=== PATIENT | male | born 1960 | race Caucasian/White ===

== ENCOUNTER 2019-06-27 16:01 | Outpatient (CLI) | payer OTHER, SELFPAY ==
[2019-06-27 16:12] LABS: Basophils Absolute Auto 0.1 K/mm3 (0.0-0.1); Basophils Percent Auto 0.8 % (0.2-1.2); Eosinophils Absolute Auto 0.3 K/mm3 (0-0.3); Eosinophils Percent Auto 3.1 % (0-4.4); Hematocrit 45.4 % (42.0-52.0); Hemoglobin 15.8 g/dL (14.0-18.0); Immature Granulocyte Absolute 0.02 K/mm3 (0.00-0.031); Immature Granulocyte Percent A 0.2 % (0-0.5); Lymphocytes Absolute Auto 3.85 K/mm3 (0.9-3.2); Lymphocytes Percent Auto 35.7 % (18.3-44.2); Mean Corpuscular HGB Conc 34.8 g/dl (32-36); Mean Corpuscular Volume 97.6 fl (80-100); Mean Platelet Volume 9.6 fl (7.4-10.4); Monocytes Absolute Auto 1.1 K/mm3 (0.1-0.6); Monocytes Percent Auto 9.9 % (2.6-8.5); Neutrophils Absolute Auto 5.4 K/mm3 (1.3-6.7); Neutrophils Percent Auto 50.3 % (45.5-73.1); Platelet Count Result 227 k/mm3 (150-375); Red Blood Count 4.65 M/mm3 (4.6-6.20); Red Cell Distribution Width 12.1 % (11.5-14.5); White Blood Count 10.8 K/mm3 (4.5-10.0)
[2019-06-27 17:00] LABS: Alanine Aminotransferase 56 U/L (4-50); Albumin Level 4.5 g/dL (3.5-5.1); Alkaline Phosphatase 61 U/L (38-126); Aspartate Amino Transferase 30 U/L (17-59); Bilirubin,Total 0.4 mg/dL (0.2-1.3); Blood Urea Nitrogen 17 mg/dL (9-20); Carbon Dioxide 25 mmol/L (22-30); Chloride 102 mmol/L (98-107); Estimated Glomerular Filt Rate > 60; Glucose 91 mg/dL (75-110); Lactate Dehydrogenase 420 U/L (313-618); Potassium 4.4 mmol/L (3.4-5.0); Sodium 141 mmol/L (137-145)
== END 2019-06-27 16:02 | disposition home or self-care (01) ==
LOC: ANHLAB 16:03
PROVIDERS: Visit Provider Internal Medicine Hematology & Oncology
DX: C44.92 Squamous cell carcinoma of skin, unspecified (principal)
CPT/HCPCS: 36415; 80053; 83615; 85025

== ENCOUNTER 2019-07-05 09:49 | Outpatient (CLI) | payer OTHER, SELFPAY ==
--- NOTE | ~2019-07-05 | US_ITS ---
EXAMINATION: US soft tissue head and neck EXAM DATE: 07/05/2019 10:37 INDICATION: Evaluate left lateral neck mass. History of squamous cell cancer. Had previous mass remov ed January 2019. TECHNIQUE: Multiple grayscale and Doppler images of the left lateral neck were obtained (by a technol ogist who performed the scan) and subsequently reviewed. There is no prior study for comparison. FINDINGS: Scanning area of concern demonstrated no left-sided neck mass or pathologically enlarged lymph nodes. Common carotid artery and internal jugular vein are unremarkable. IMPRESSION: 1. Unremarkable ultrasound exam. Reviewed, dictated and finalized at location A. ARE PROVIDER
== END 2019-07-05 09:50 | disposition home or self-care (01) ==
PROVIDERS: PCP Family Medicine; Visit Provider Internal Medicine Hematology & Oncology
DX: C44.92 Squamous cell carcinoma of skin, unspecified (principal)
CPT/HCPCS: 76536

== ENCOUNTER → 2019-12-05 11:23 | Outpatient (CLI) | payer OTHER, SELFPAY ==
--- NOTE | ~2019-12-05 | XR_ITS ---
XR abdomen/kub 1V DATE: 12/05/2019 11:35 INDICATION: Abdominal pain, low back pain. History of kidney stones. TECHNIQUE: AP views COMPARISON: 03/03/2009 CT abdomen FINDINGS: There are a few calcifications overlying the renal silhouettes consistent with known bilate ral nephrolithiasis. Bilateral calcifications are noted in the pelvic area, most if not all due to calcified pelvic phlebo liths. If there is concern for any ureteral calculus, consider noncontrast CT abdomen pelvis examinat ion. Surgical clips overlie the left inguinal area. The psoas shadows are intact. No visceromegaly is detected. There is no evidence of bowel obstruction . The lung bases are clear of infiltrate or consolidation. Heart size appears within normal limits. IMPRESSION: Bilateral nephrolithiasis Reviewed, dictated and finalized at Location A. Reviewed, dictated and finalized at location A. IMPRESSION: Bilateral nephrolithiasis
== END ==
PROVIDERS: PCP Physician Assistant; Visit Provider Physician Assistant
DX: R10.9 Unspecified abdominal pain (principal); N20.0 Calculus of kidney
CPT/HCPCS: 74018

== ENCOUNTER 2019-12-13 17:00 | Outpatient (CLI) | payer OTHER, SELFPAY ==
--- NOTE | ~2019-12-13 | CT_ITS ---
EXAMINATION: CT abdomen pelvis wo con DATE: 12/13/2019 17:19 INDICATION: Calculus of kidney TECHNIQUE: Computed tomography (CT) of the abdomen and pelvis was performed without intravenous contr ast. The dose-length product (DLP) was 661.36 mGy-cm. Automated exposure control and iterative recons truction technique were employed. COMPARISON: 03/03/2009 FINDINGS: A calcified nodule of the lingula is consistent with old granulomatous disease. The heart s ize is normal. Punctate calcifications in an otherwise normal spleen likely represent healed granulom atous disease. The liver, pancreas, gallbladder, and adrenal glands are normal. There is a 6 mm stone in the proximal right ureter which causes mild right hydroureteronephrosis. Nonobstructing stones of the right kidney measure up to 4 mm. There is a 5 mm nonobstructing stone in the left kidney upper p ole. No stones are identified in the left ureter or the bladder. There is calcified atherosclerosis o f the aorta and many of the other arteries. No pathologically enlarged abdominal or pelvic lymph node s are identified. There is no free intraperitoneal gas or evidence of bowel obstruction. There are henley rgical clips in the left groin. Multiple phleboliths are noted in the pelvis. There is mild lumbar sp ondylosis. IMPRESSION: 1. 6 mm stone of the proximal right ureter causing mild right hydroureteronephrosis. 2. Bilateral nephrolithiasis. Reviewed, dictated and finalized at location A. IMPRESSION: 1. 6 mm stone of the proximal right ureter causing mild right hydroureteronephr osis. 2. Bilateral nephrolithiasis.
== END 2019-12-13 17:01 | disposition home or self-care (01) ==
PROVIDERS: PCP Physician Assistant; Visit Provider Physician Assistant
DX: N20.0 Calculus of kidney (principal); N20.1 Calculus of ureter; N13.30 Unspecified hydronephrosis
CPT/HCPCS: 74176

== ENCOUNTER 2019-12-26 11:44 | Outpatient (CLI) | payer OTHER, SELFPAY ==
--- NOTE | ~2019-12-26 | XR_ITS ---
EXAMINATION: XR abdomen/kub 1V INDICATION: Right ureteral stone TECHNIQUE: Supine views of the abdomen were obtained on 2 radiographs. COMPARISON: 12/05/2019; CT, 12/13/2019 FINDINGS: There is a new 6 mm calcification in the right pelvis at the expected location of the dista l right ureter which likely reflects interval distal migration of the ureteral calculus described on CT. Multiple pelvic phleboliths are noted. There is a 5 mm stone of the left kidney upper pole. Surgi lisa clips project over the left hip and pelvic region. The bowel gas pattern is normal. IMPRESSION: 1. 6 mm stone in the distal right ureter. 2. Left nephrolithiasis. Reviewed, dictated and finalized at location A.
== END 2019-12-26 11:45 | disposition home or self-care (01) ==
LOC: ANHIMG 11:48
PROVIDERS: PCP Physician Assistant; Visit Provider Urology
DX: N20.2 Calculus of kidney with calculus of ureter (principal)
CPT/HCPCS: 74018

== ENCOUNTER 2019-12-27 00:54 | Day surgery (SDC) | payer OTHER, SELFPAY ==
[2019-12-26 14:28] VITALS: BMI 34.0
[2019-12-27] VITALS (8 sets, daily range): BP systolic 143–170; BP diastolic 58–86; PULSE 57–64; RESP 14–20; TEMP 36.1–36.2; O2SAT 94–100
--- NOTE | ~2019-12-27 | XR_ITS ---
EXAMINATION: XR retrograde pyelo w/stent RT EXAM DATE: 12/27/2019 10:29 INDICATION: Right-sided cystoscopy, retrograde, stone extraction. TECHNIQUE: Fluoroscopy used during XR retrograde pyelo w/stent RT performed by Dr. Mars schmidt MD. The DAP for this procedure was 0.2 mGym2. FINDINGS: Right ureter was cannulated, injected. There is mild right-sided hydroureteronephrosis. A right-sided double-J ureteral stent was placed. Correlate with procedure note. IMPRESSION: Fluoroscopy used during XR retrograde pyelo w/stent RT. Reviewed, dictated and finalized at location A.
--- NOTE | 2019-12-27 06:57 | WPDANESEPPF ---
Anes - Initial Pre Proc Eval Procedure: Operation Date: 12/27/19 09:30 Proposed Procedures p Cystoscopy, Right Retrograde Pyelogram, Right Ureteral Stone Extraction, Possible Right Stent Placement - Mars Parr MD s Possible Holmium Laser Procedure - Mars Parr MD Date/Time: 12/27/19 06:57 Surgeon: Mars Parr MD Pre Op Diagnosis: Right Ureteral Stone Patient Data Age: 59 Gender: M Height: 1.75 m Weight: 104.35 kg Allergies Allergy/AdvReac Type Severity Reaction Status Date / Time No Known Allergies Allergy Verified 12/27/19 08:23 Home Medications Medication Instructions Recorded Confirmed Type carvedilol 3.125 mg tablet 3.125 mg PO Q12H #180 tablet 10/18/19 12/27/19 Rx lisinopril 20 mg tablet 20 mg PO DAILY #90 tablet 10/18/19 12/27/19 Rx omeprazole 20 mg capsule,delayed 20 mg PO DAILY #90 cap 10/18/19 12/27/19 Rx release ascorbate calcium (vitamin C) 500 mg PO DAILY 12/26/19 12/27/19 History cholecalciferol (vitamin D3) 50 mcg PO DAILY 12/26/19 12/27/19 History Patient hx anesthesia problems: none Family hx anesthesia problems: none [facility] Social History Social History (Reviewed 12/03/19 @ 12:33 by Namita Rucker [facility]) Smoking packs per day: 1 Smoking cigarettes per day: 20.0 Years smoked: 30 Smoking pack-years: 30.00 Smoking status: Current every day smoker Tobacco type: cigarettes Alcohol intake: current Drinks per week: 14 Alcohol use details: BEER Substance use: never Living arrangements: with family Spiritual care concerns: No Anes - Eval Final PreProcedure Day of Procedure 12/27/19 06:57 Patient weight: obese Heart: regular rate and rhythm Lungs: clear to auscultation and normal air movement Airway: Mallampati scale class II Neurological: alert and oriented Last oral intake: >/= 8 hours ASA classification: II Emergent: no Anesthetic plan: proceed Anesthesia type and monitoring: general LMA and standard monitoring Informed Consent: The patient's anesthetic plan and its attendant risks and benefits were discussed with the patient/family/POA. Questions were solicited and answers provided to the satisfaction of the patient/family/POA.
--- NOTE | 2019-12-27 08:06 | WPDHPUPDATE1 ---
History and Physical Update Update Date/Time: 12/27/19 08:06 History and Physical has been reviewed, including an updated exam of the patient. There are NO changes in the patient's condition. Risks, benefits, and alternatives have been discussed and questions answered. Patient agrees to proceed with procedure.
[2019-12-27] MEDS: LACTATED RINGERS 1,000 ML 30 ML IV CONT (08:30)
[2019-12-27] MEDS: ceFAZolin 2 GM/D5W 50 ML 2 GM/50 ML BAG IVPB (09:47)
[2019-12-27] MEDS: LIDOCAINE HCL 2% GEL UROJET 10 ML PKG MUCOUS MEM (10:08)
--- NOTE | 2019-12-27 10:31 | PM.PROC ---
Procedure Note - Detailed Date of procedure: 12/27/19 Pre-op diagnosis: Right Ureteral Stone Post-op diagnosis: same Procedure performed: Cystoscopy, right retrograde pyelogram, right ureteroscopy with holmium laser, stone extraction, right ureteral stent placement. Description of procedure: Patient was taken to the operative suite and correctly identified. Once anesthesia was obtained he was placed in dorsal lithotomy position and prepped and draped usual sterile fashion. Twenty-two [place]ayan scope was inserted into the bladder. He has some lateral lobe hypertrophy. No tumors noted. Both ureteral orifices normal anatomic position. The right ureteral orifice was cannulated with a guidewire. It was dilated with an 8/10 dilator. Rigid ureteral scope was inserted. The stone was visualized but was too large to retrieve in 1 piece. Two hundred seventy-three micron fiber was then used to fragment stone into multiple pieces. Those were retrieved and sent for analysis. Retrograde pyelogram was then performed to confirm placement of the stent. 4.8 [place] contour stent was then placed with the proximal end coiled in the renal pelvis and the distal in the bladder. Bladder was drained. 2% viscous lidocaine was inserted into the urethra. He is taken recovery room stable condition. He will follow up in a week's time for stent removal. Anesthesia: GLMA Surgeon: Mars Parr MD Drains: Yes Packing: No Pathology: yes Complications: No immediate complications Condition: stable Disposition: PACU
== END 2019-12-27 12:30 | disposition home or self-care (01) ==
PROVIDERS: PCP Physician Assistant; Visit Provider Urology
PROC: (CPT 52352; principal; 2019-12-27 09:30)
PROC: (CPT 52356; 2019-12-27 09:30)
DX: N20.1 Calculus of ureter (principal); F17.210 Nicotine dependence, cigarettes, uncomplicated; E66.9 Obesity, unspecified; Z68.34 Body mass index [BMI] 34.0-34.9, adult
CPT/HCPCS: 52356; 74420; 82365; 88300; A9270; C2617; J0690; J1200; J2250; J2405; J2704; J3010; J7120; Q9966

== ENCOUNTER → 2020-02-17 11:14 | Outpatient (CLI) | payer OTHER, SELFPAY ==
--- NOTE | ~2020-02-17 | XR_ITS ---
XR lumbar spine 2-3V DATE: 02/17/2020 13:24 INDICATION: Back pain TECHNIQUE: AP lateral and coned lateral lumbosacral views COMPARISON: None FINDINGS: Diffuse osteopenia. No fracture or bone destruction is evident. The included lower thoracic and lumbar pedicles are intac t. There is moderate degenerative disc disease throughout the lumbar and lumbosacral spine. The sacroili ac joints are intact. IMPRESSION: Osteopenia Moderately prominent degenerative disc disease Reviewed, dictated and finalized at location B.
== END ==
PROVIDERS: PCP Physician Assistant; Visit Provider Physician Assistant
DX: M85.88 Other specified disorders of bone density and structure, other site (principal); M51.36 Other intervertebral disc degeneration, lumbar region
CPT/HCPCS: 72100

== ENCOUNTER 2020-02-26 00:59 | Outpatient (CLI) | payer OTHER, SELFPAY ==
[2020-02-26 19:19] LABS: SARS-CoV-2 RNA PCR Negative
== END 2020-02-26 01:00 | disposition home or self-care (01) ==
LOC: ANHCOVIDDT 01:00
PROVIDERS: PCP Physician Assistant; Visit Provider Internal Medicine Gastroenterology
DX: Z01.812 Encounter for preprocedural laboratory examination (principal); Z20.828 Contact with and (suspected) exposure to other viral communicable diseases
CPT/HCPCS: 87635; C9803; U0003

== ENCOUNTER 2020-02-28 00:49 | Day surgery (SDC) | payer OTHER, SELFPAY ==
[2020-02-24 13:48] VITALS: BMI 34.8
[2020-02-28 07:34] VITALS: BP 161/72; PULSE 82; RESP 20; TEMP 36.3; O2SAT 98
--- NOTE | 2020-02-28 07:38 | PM.HPGS ---
History of Present Illness History of Present Illness Consent: Risks, benefits, and alternatives have been discussed and questions answered. Patient agrees to proceed with procedure. Chief complaint: neoplsm screening, hx of polyps Narrative: Shakir Mcgowan is a 59 year old male here for screening colonoscopy. He has a history of polyps PMFSH Past Medical History Medical History GERD (gastroesophageal reflux disease) History of actinic keratoses Hx of melanoma of skin 1996, 2000, 2002 Hypertension Lumbar disc disease Surgical History Surgical History (Reviewed 02/12/20 @ 10:11 by Samia Worthy [facility]) Status post surgical removal of malignant neoplasm of skin Family History Family History Father Heart disease Mother , age 87, multiple cancers no treatment Breast cancer Multiple myeloma Lung cancer Grandparent Malignant neoplasm of prostate Carcinoma of colon Other Carcinoma of colon Social History Social History Smoking packs per day: 1 Smoking cigarettes per day: 20.0 Years smoked: 30 Smoking pack-years: 30.00 Smoking status: Current every day smoker Tobacco type: cigarettes Alcohol intake: current Drinks per week: 42 Substance use: never Substance use type: does not use Living arrangements: with family Spiritual care concerns: No Meds Home Medications and Allergies Home Medications Medication Instructions Recorded Confirmed Type carvedilol 3.125 mg tablet 3.125 mg PO Q12H #180 tablet 10/18/19 02/24/20 Rx lisinopril 20 mg tablet 20 mg PO DAILY #90 tablet 10/18/19 02/24/20 Rx omeprazole 20 mg capsule,delayed 20 mg PO DAILY #90 cap 10/18/19 02/24/20 Rx release ascorbate calcium (vitamin C) 500 mg PO DAILY 12/26/19 02/24/20 History cholecalciferol (vitamin D3) 50 mcg PO DAILY 12/26/19 02/24/20 History gabapentin 300 mg capsule 300 mg PO .at night #30 cap 02/25/20 Rx tramadol 50 mg tablet 50 mg PO Q6H PRN #30 tablet 02/27/20 Rx Allergies Allergy/AdvReac Type Severity Reaction Status Date / Time No Known Allergies Allergy Verified 02/28/20 07:33 Exam Resp: Auscultation: clear to auscultation bilaterally Cardio: Rate: regular rate Rhythm: regular rhythm GI: GI Palp: Yes Soft to palpation and No Tenderness to palpation present (GI) Assessment and Plan Assessment and plan (1) Colon cancer screening: Code(s): Z12.11 - Encounter for screening for malignant neoplasm of colon Status: Acute Assessment and Plan: Colonoscopy with possible biopsy or polypectomy or cautery or injection of substances.
[2020-02-28] MEDS: LACTATED RINGERS 1,000 ML 150 ML IV CONT (07:50)
--- NOTE | 2020-02-28 08:01 | WPDANESEPPF ---
Anes - Initial Pre Proc Eval Procedure: Operation Date: 02/28/20 08:30 Proposed Procedures p Screening Colonoscopy - Sylvester Agee MD Date/Time: 02/28/20 08:01 Surgeon: Sylvester Agee MD Pre Op Diagnosis: neoplsm screening, hx of polyps Patient Data Age: 59 Gender: M Height: 5 ft 9 in Weight: 101.6 kg Last Vital Signs Temp 97.3 F L 02/28/20 07:34 Pulse 82 02/28/20 07:34 Resp 20 02/28/20 07:34 BP 161/72 H 02/28/20 07:34 Pulse Ox 98 02/28/20 07:34 Allergies Allergy/AdvReac Type Severity Reaction Status Date / Time No Known Allergies Allergy Verified 02/28/20 07:33 Home Medications Medication Instructions Recorded Confirmed Type carvedilol 3.125 mg tablet 3.125 mg PO Q12H #180 tablet 10/18/19 02/24/20 Rx lisinopril 20 mg tablet 20 mg PO DAILY #90 tablet 10/18/19 02/24/20 Rx omeprazole 20 mg capsule,delayed 20 mg PO DAILY #90 cap 10/18/19 02/24/20 Rx release ascorbate calcium (vitamin C) 500 mg PO DAILY 12/26/19 02/24/20 History cholecalciferol (vitamin D3) 50 mcg PO DAILY 12/26/19 02/24/20 History gabapentin 300 mg capsule 300 mg PO .at night #30 cap 02/25/20 Rx tramadol 50 mg tablet 50 mg PO Q6H PRN #30 tablet 02/27/20 Rx Patient hx anesthesia problems: none Family hx anesthesia problems: none PMFSH Past Medical History Medical History GERD (gastroesophageal reflux disease) History of actinic keratoses Hx of melanoma of skin 1996, 2000, 2002 Hypertension Lumbar disc disease Surgical History Surgical History Status post surgical removal of malignant neoplasm of skin Family History Family History Father Heart disease Mother , age 87, multiple cancers no treatment Breast cancer Multiple myeloma Lung cancer Grandparent Malignant neoplasm of prostate Carcinoma of colon Other Carcinoma of colon Social History Social History Smoking packs per day: 1 Smoking cigarettes per day: 20.0 Years smoked: 30 Smoking pack-years: 30.00 Smoking status: Current every day smoker Tobacco type: cigarettes Alcohol intake: current Drinks per week: 42 Substance use: never Substance use type: does not use Living arrangements: with family Spiritual care concerns: No Anes - Eval Final PreProcedure Day of Procedure 02/28/20 08:01 Patient weight: overweight Heart: regular rate and rhythm Lungs: clear to auscultation Airway: Mallampati scale class II Neurological: alert and oriented Last oral intake: >/= 8 hours ASA classification: II Emergent: no Anesthetic plan: proceed Anesthesia type and monitoring: general GIVS and standard monitoring Informed Consent: The patient's anesthetic plan and its attendant risks and benefits were discussed with the patient/family/POA. Questions were solicited and answers provided to the satisfaction of the patient/family/POA.
[2020-02-28 08:37] VITALS: BP 101/47; PULSE 87; RESP 19; O2SAT 95
[2020-02-28 08:47] VITALS: BP 102/67; PULSE 71; RESP 17; O2SAT 97
[2020-02-28 08:57] VITALS: BP 131/59; PULSE 67; RESP 17; O2SAT 97
== END 2020-02-28 09:07 | disposition home or self-care (01) ==
PROVIDERS: PCP Physician Assistant; Visit Provider Internal Medicine Gastroenterology
PROC: 0DJD8ZZ Inspection of Lower Intestinal Tract, Via Natural or Artificial Opening Endoscopic (ICD-10-PCS; CPT 45378; principal; 2020-02-28 08:30)
DX: Z12.11 Encounter for screening for malignant neoplasm of colon (principal); K64.4 Residual hemorrhoidal skin tags; K57.30 Diverticulosis of large intestine without perforation or abscess without bleeding; I10 Essential (primary) hypertension; K21.9 Gastro-esophageal reflux disease without esophagitis; Z85.820 Personal history of malignant melanoma of skin; F17.210 Nicotine dependence, cigarettes, uncomplicated
CPT/HCPCS: 45378; 87635; C9803; J2704; J7120; U0003

== ENCOUNTER → 2020-03-17 11:59 | Outpatient (CLI) | payer OTHER, SELFPAY ==
--- NOTE | ~2020-03-17 | MR_ITS ---
EXAMINATION: MR lumbar spine wo con DATE: 03/17/2020 12:56 INDICATION: Low back pain. TECHNIQUE: Magnetic resonance imaging (MRI) of the lumbar spine was performed without intravenous con trast. Sequences included sagittal T2-weighted FSE, sagittal T2-weighted FS FSE, sagittal T1-weighted FSE, and axial T2-weighted FSE. COMPARISON: Lumbar spine radiographs 02/17/2020 FINDINGS: There is 3 mm retrolisthesis of L1 on L2. Vertebral body heights are normal. There is mildl y decreased disc height at L1-L2, L3-L4, and L5-S1. The distal spinal cord signal intensity is normal . The conus medullaris is at L1. The following disc levels are specifically discussed: L1-L2: The disc is bulging and has an annular fissure. There is mild right facet joint osteoarthritis . There is mild bilateral neural foraminal stenosis. There is mild central canal stenosis. L2-L3: The disc is bulging and has an annular fissure. There is mild bilateral facet joint osteoarthr itis. There is mild bilateral neural foraminal stenosis. There is mild central canal stenosis. L3-L4: The disc is bulging with superimposed left central and subarticular zone extrusion with 14 mm superior extension with mass effect on the left L3 exiting nerve root. There is mild bilateral facet joint osteoarthritis. There is moderate bilateral neural foraminal stenosis. There is mild central ca nal stenosis. L4-L5: The disc is bulging and has an annular fissure. There is severe right and moderate left facet joint osteoarthritis. There is mild bilateral neural foraminal stenosis. There is mild central canal stenosis. L5-S1: The disc is bulging. There is moderate right and mild left facet joint osteoarthritis. There i s mild bilateral neural foraminal stenosis. There is mild central canal stenosis. IMPRESSION: 1. Moderate lumbar spondylosis. Of note, an extrusion at L3-L4 exerts mass effect on left L3 nerve ro ot. Reviewed, dictated and finalized at location A. IMPRESSION: 1. Moderate lumbar spondylosis. Of note, an extrusion at L3-L4 exerts mass effe ct on left L3 nerve root.
== END ==
PROVIDERS: Visit Provider Nurse Practitioner Family
DX: M47.896 Other spondylosis, lumbar region (principal)
CPT/HCPCS: 72148

== ENCOUNTER → 2021-10-26 08:47 | Outpatient (CLI) | payer OTHER, SELFPAY ==
--- NOTE | ~2021-10-26 | MR_ITS ---
EXAMINATION: MR lumbar spine wo con DATE: 10/26/2021 09:30 INDICATION: Low back pain. Left hip and leg pain. TECHNIQUE: Magnetic resonance imaging (MRI) of the lumbar spine was performed without intravenous con trast. Sequences included sagittal T2-weighted FSE, sagittal T2-weighted FS FSE, sagittal T1-weighted FSE, and axial T2-weighted FSE. COMPARISON: Lumbar spine MRI 03/17/2020 FINDINGS: There is 4 degrees dextrocurvature of lumbar spine. There is 3 mm retrolisthesis of T12 on L1 and 5 mm retrolisthesis of L1 on L2. There is mild chronic anterior wedging of T11 vertebral body. There is mildly decreased disc height at T11-T12 and T12-L1, moderately decreased disc height at L1- L2, mildly decreased disc height at 2-L3, moderately decreased disc height at L3-L4, and mildly decre ased disc height at L5-S1. The distal spinal cord signal intensity is normal. The conus medullaris is at L1. The following disc levels are specifically discussed: L1-L2: The disc is bulging and has an annular fissure. There is mild bilateral facet joint osteoarthr itis. There is moderate bilateral neural foraminal stenosis. There is mild central canal stenosis. L2-L3: The disc is bulging and has an annular fissure. There is mild bilateral facet joint osteoarthr itis. There is mild bilateral neural foraminal stenosis. There is mild central canal stenosis. L3-L4: The disc is bulging with superimposed left subarticular zone extrusion with 18 mm superior ext ension and mass effect on the left L3 nerve root. There is mild bilateral facet joint osteoarthritis. There is moderate bilateral neural foraminal stenosis. There is moderate central canal stenosis. L4-L5: The disc is bulging and has an annular fissure. There is severe bilateral facet joint osteoart hritis. There is mild right and moderate left neural foraminal stenosis. There is mild central canal stenosis. L5-S1: The disc is bulging and has an annular fissure. There is moderate bilateral facet joint osteoa rthritis. There is mild lateral neural foraminal stenosis. There is mild central canal stenosis. IMPRESSION: 1. Moderate lumbar spondylosis with mild interval worsening. Of note, an extrusion at L3-L4 exerts ma ss effect on the left L3 nerve root. Reviewed, dictated and finalized at location A. IMPRESSION: 1. Moderate lumbar spondylosis with mild interval worsening. Of note, an extrus ion at L3-L4 exerts mass effect on the left L3 nerve root.
== END ==
PROVIDERS: PCP Physician Assistant; Visit Provider Nurse Practitioner Family
DX: M47.26 Other spondylosis with radiculopathy, lumbar region (principal)
CPT/HCPCS: 72148

== ENCOUNTER 2024-04-24 09:58 | Outpatient (CLI) | payer OTHER, SELFPAY ==
--- NOTE | ~2024-04-24 | CT_ITS ---
CT Scan of the Chest without Contrast: Clinical Indication: Lung cancer screening, nicotine dependence Technique: Contiguous sections were acquired throughout the chest without intravenous contrast. Dose reduction technique was used on this scan by utilizing automated exposure control and iterative recon struction technique. The dose-length product (DLP) was 391.02 mGy-cm. Findings: There is no evidence of any significant mediastinal, hilar or axillary lymphadenopathy. Densely calci fied mediastinal lymph nodes are present. Coronary artery calcifications are present. There is no evidence of pleural or pericardial effusion. Calcified lingular granuloma present. No other pulmonary nodule seen. Images through the upper abdomen reveal diffuse hepatic steatosis, and nonobstructing renal stones. Impression: Lung RADS 1: Negative. 12 month follow-up screening CT advised. Hepatic steatosis and nephrolithiasis. Reviewed, dictated and finalized at [facility]. [employer] Impression: Lung RADS 1: Negative. 12 month follow-up screening CT advised. Hepatic steatosis and nephrolithiasis.
== END 2024-04-24 09:59 | disposition home or self-care (01) ==
PROVIDERS: PCP Nurse Practitioner Adult Health; Visit Provider Nurse Practitioner Adult Health
DX: Z12.2 Encounter for screening for malignant neoplasm of respiratory organs (principal); K76.0 Fatty (change of) liver, not elsewhere classified; N20.0 Calculus of kidney; Z87.891 Personal history of nicotine dependence
CPT/HCPCS: 71271

== ENCOUNTER 2024-05-28 10:39 | Outpatient (CLI) | payer OTHER, SELFPAY ==
--- NOTE | 2024-05-31 22:38 | WPDHOMESLEEP ---
Sleep Study - Home Unattended Date of Study: 05/28/24 Ordering Provider: Lakisha Perez APRN Interpreting Provider: Shital Arteaga MD Home Sleep Study Type: Watch PAT Height: 1.75 m Weight: 108.862 kg Body Mass Index: 35.4 Neck Circumference (inches): 18.25 [place]: 7 Reason for Sleep Study Loud snoring, waking with a dry mouth Sleep History Shakir Mcgowan is a 63-year-old man with a history of melanoma, hypertension, hyperlipidemia and a spinal fusion. He has loud snoring, witnessed apneas an episode of choking and gasping at night. He has difficulty breathing when he is on his back. He does not awaken with a morning headache. He does awaken with a dry mouth. He does not have nocturnal heartburn. He has nocturia twice at night. He had a prior sleep study in 2013, was diagnosed with moderate obstructive sleep apnea. He does have a medical comorbidity hypertension. He is sleepy and fatigued during the daytime, he is not refreshed on waking although he does not have the urge falls asleep during the day and he does not have drowsy driving. He does have an urge to move his legs at night, this is worse with resting and it does get better with activities. It is worse in the evening or night. This does cause him concern. He does kick his legs excessively at night, he clenches and grinds his teeth at night and he does have a restless feeling in his legs. He has difficulty falling asleep and staying asleep. When he awakens at night he has a difficult time returning to sleep. He is not anxious about his sleep. His normal bedtime is 9:00 p.m. falling asleep within 45 minute spending 7 hours in bed, 6 hours sleeping. On his weekends or days off, his usual bedtime is 10:00 p.m. falling asleep within 45 minutes spending 6 hours in bed and all 6 hours sleeping. He never feels restored on waking in the morning. [facility] Past Medical History Medical History HLD (hyperlipidemia) Lumbar disc disease GERD (gastroesophageal reflux disease) Hypertension History of actinic keratoses Hx of melanoma of skin 1996, 2000, 2002 Surgical History Surgical History Hx of spinal fusion December 2021 L3-L4 Status post surgical removal of malignant neoplasm of skin Family History Family History Father Heart disease Mother , age 87, multiple cancers no treatment Breast cancer Multiple myeloma Lung cancer Grandparent Malignant neoplasm of prostate Carcinoma of colon Other Carcinoma of colon Social History Social History Smoking packs per day: 1 Smoking cigarettes per day: 20.0 Years smoked: 40 Smoking pack-years: 40.00 Smoking status: Current every day smoker (0.75 ppd for 45 years) Tobacco type: cigarettes Alcohol intake: current Drinks per week: 42 Alcohol use details: BEER Substance use: never Substance use type: does not use Lack of Transportation: No Lack of Food: Never True Current Housing: I Have Housing Concerned About Future Housing: No Difficulty Paying Gas/Electric Bills: No Difficulty Paying for Meds: No Currently Unemployed: No Education: High School Diploma/GED Difficulty w/ Childcare or Family Care: No Living arrangements: with family Spiritual care concerns: No Medications Home Medications ?Medication ?Instructions ?Recorded ?Confirmed ?Type ascorbate calcium (vitamin C) 500 500 mg PO DAILY 12/26/19 04/08/24 History mg tablet cholecalciferol (vitamin D3) 50 50 mcg PO DAILY 12/26/19 04/08/24 History mcg (2,000 unit) tablet omeprazole 20 mg capsule,delayed 20 mg PO DAILY #90 caps 05/17/23 04/08/24 Rx release carvedilol 3.125 mg tablet 3.125 mg PO Q12H #180 tabs 11/03/23 04/08/24 Rx rosuvastatin 10 mg tablet 10 mg PO DAILY #90 tabs 11/03/23 04/08/24 Rx lisinopril 20 mg tablet 20 mg PO DAILY #90 tabs 02/27/24 04/08/24 Rx Sleep Procedure The sleep study was completed using WatchPAT a technically adequate device with seven channels: peripheral arterial tone, actigraphy, body position, snore, respiratory movement, pulse oximetry, sleep staging, and heart rate. Prior to using the device, the patient received verbal and written instructions for its application and was provided with the help desk phone number for additional telephonic instruction with 24-hour availability of qualified personnel to answer questions. Sleep Architecture The total recording time is 9 hrs, 37 min. The total sleep time is 8 hrs, 47 min. Sleep latency is 20 minutes. REM latency is 273 minutes. The patient had 7 episodes of waking. Sleep architecture shows 3.3% deep sleep, 82.2% light sleep, and 14.5% stage REM. The patient spent 37.3% of total sleep time in the supine position. Sleep efficiency was 91%. Respiratory Analysis The overall AHI (pAHI 3%:) is 74.7. The central AHI is 21.2. The AHI was 77.0 in NREM and 61.2 in REM sleep. The AHI was 76.6 in Supine and 73.6 in Non-supine sleep. Percent of Vic Gilmore respirations is 22.7% Oximetry Data The oxygen desaturation index (PA 4%:) is 69.8. The mean saturation is 93%, and the lowest saturation is 67%. Time spent with saturation < 88% is 54.3 minutes. Snoring Profile Snoring average intensity is 47 dB. The patient snored above 45 decibels for 235.5 minutes, 44.7% of sleep time. Cardiac Profile The average pulse rate is 61 beats per minute, minimum pulse 44 beats per minute and maximum pulse 125 beats per minute. The cardiac rhythm analysis and sleep did not detect any atrial fibrillation. Assessment and Plan Assessment and Plan (1) Obstructive sleep apnea: Code(s): G47.33 - Obstructive sleep apnea (adult) (pediatric) Status: Acute Assessment and Plan: This home sleep test using WatchPat on 05/28/2024 shows extremely severe obstructive sleep apnea, the apnea-hypopnea index is 68.8 with a central apnea-hypopnea index of 21.2 associated with Vic-Gilmore respiration during 22.7% of the night. This patient needs to have a CPAP titration in the sleep lab without delay. In general we recommend patient is having a sleep aid available, if needed, to initiate and maintain sleep during the titration which can be difficult for some patients. The patient has sleep history that shows taking several drinks of alcohol before bed. This may be the cause of his Vic-Gilmore respirations. This patient is not a candidate for auto PAP. Auto PAP can worsen central sleep apnea. BMI is 35. Weight management is advised. Clinical data suggests that weight loss of 10% can reduce the severity of respiratory events and snoring and improve AHI by as much as 25%. 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 This patient needs to have an echocardiogram to evaluate his left ventricular function. Central sleep apnea can be seen in the setting of stroke, heart failure, opioid and alcohol use. Data The data obtained during this sleep study is adequate for interpretation. Certification This sleep study has been reviewed by a board certified sleep medicine physician.
[2024-06-03 11:11] VITALS: BMI 35.4
== END 2024-05-29 12:53 | disposition home or self-care (01) ==
LOC: ANHCSM 10:44
PROVIDERS: PCP Nurse Practitioner Adult Health; Visit Provider Nurse Practitioner Adult Health
DX: G47.33 Obstructive sleep apnea (adult) (pediatric) (principal); I10 Essential (primary) hypertension; Z68.34 Body mass index [BMI] 34.0-34.9, adult
CPT/HCPCS: 95800

== ENCOUNTER 2024-07-30 09:00 | Outpatient (CLI) | payer OTHER, SELFPAY ==
--- OUTSIDE RECORDS SUMMARY | 2024-07-30 09:55 | XMS_ITS | Clinical Summary ---
Author Organization [facility] Address [address] [place] [address] Care Team Providers Care Media Consultant Outside Sales Name Role Phone Unavailable Primary Care Provider Unavailabl e Social History Tobacco Use Types Packs/Day Years Used Date Smoking Tobacco: Never Assessed Sex and Gender Information Value Date Recorded Sex Assigned at Not on file Legal Sex Male 7:13 PM CDT Gender Identity Not on file Sexual Orientation Not on file Plan of Treatment Health Maintenance Due Date Last Done Comments Colorectal Cancer Screening Colonoscopy (10 Years) 1958 Hepatitis C 1976 DTaP, Tdap and Td Vaccines ( 1 - Tdap) 1977 Zoster Vaccines (1 of 2) 2008 Pneumococcal Vaccine: 65+ Ye ars (1 of 1 - PCV) 2023 COVID-19 Vaccine ( - 2023-2 5 season) 2024 Influenza Adult (#1) 2024 RSV Immunization or 60+ Years (1 - 1-dose 75+ series) 2033 Meningococcal B Vaccine Aged Out No l onger eligible based on patient's age to complete this topic Meningococcal Vaccine Aged Out No robb bella eligible based on patient's age to complete this topic Pneumococcal Vaccine: Pediat rics (0 to 5 Years) and At-Risk Patients (6 to 64 Years) Aged Out No longer eligible b ased on patient's age to complete this topic RSV Immunizations Under 20 Months Aged Out No longer eligible based on patient's age to complete this topic
--- OUTSIDE RECORDS SUMMARY | 2024-07-30 09:55 | XMS_ITS | Encounter Summary ---
Author Organization [facility] Address 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
--- OUTSIDE RECORDS SUMMARY | 2024-07-30 09:55 | XMS_ITS | Encounter Summary ---
Author Organization [facility] Address 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
--- OUTSIDE RECORDS SUMMARY | 2024-07-30 09:55 | XMS_ITS | Clinical Summary ---
Author Organization [facility] Address [address] [place] [address] Care Team Providers Care Sports Clerk Name Role Phone Unavailable Primary Care Provider Unavailabl e Allergies No known active allergies Medications lisinopril (PRINIVIL) 20 mg tablet Take 20 mg by mouth daily. Active OMEPRAZOLE ORAL Take by mouth. 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 Gender Identity Not on file Sexual Orientation Not on file Last Filed Vital Signs Vital Sign Reading Time Taken Comments Blood Pressure 166/83 06/27/2019 3:05 PM [employer]ICE Pulse 64 06/27/2019 3:05 PM [employer]ICE Temperature 36.7 C (98.1 F) 06/27/2019 3:05 PM [employer]ICE [employer]ICE Respiratory Rate - - Oxygen Saturation 95% 06/27/2019 3:05 PM [employer] Inhaled Oxygen Concentration - - Weight 111.4 kg (245 lb 11.2 oz) 06/27/2019 3:05 PM POLICE JUSTICE Height 175.3 cm (5' 9 ) 06/27/2019 3:05 PM POLICE JUSTICE Body Mass Index 36.28 06/27/2019 3:05 PM POLICE JUSTICE Plan of Treatment Health Maintenance Due Date Last Done Comments DTAP/TDAP/TD VACCINES (1 - Tdap) 1977 PNEUMOCOCCAL VACCINE 50+ YEARS (1 of 2 - PCV) 06/10/18 78 COLORECTAL SCREENING 2003 Colorectal Cancer Screening 2003 FIT-DNA Q 3 years 2003 FIT/FOBT Q 1 year 2003 Flex Sig/CT Colonography Q 5 years 2003 ZOSTER VACCINE (1 of 2) 2008 INFLUENZA VACCINE (#1) 2023 RSV VACCINE (60+ or ) (1 - 1-dose 75+ series) 2033 Insurance [employer] ELECT CHOICE
--- OUTSIDE RECORDS SUMMARY | 2024-07-30 09:55 | XMS_ITS | Encounter Summary ---
Author Organization [facility] Address 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
--- OUTSIDE RECORDS SUMMARY | 2024-07-30 09:55 | XMS_ITS | Encounter Summary ---
Author Organization [facility] Address 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
--- OUTSIDE RECORDS SUMMARY | 2024-07-30 09:55 | XMS_ITS | Encounter Summary ---
Author Organization [facility] Address 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
[2024-08-27 11:43] VITALS: BMI 35.4
--- NOTE | 2024-08-27 11:43 | P.SLEEP_ITS ---
Sleep Study Date of Study: 07/30/24 Ordering Provider: Lakisha Perez APRN Interpreting Physician: Nicki Huntley DO Sleep Study Type: CPAP Titration Height: 1.75 m Weight: 108.862 kg Body Mass Index: 35.4 Neck Circumference (inches): 18.25 [place]: 7 Reason for Sleep Study WatchPAT home sleep test on showed overall AHI of 68.8 with EMMY of 21.2. KNOWLEDGE MANAGEMENT CONSULTANT present 22.7% of the night. Sleep History Shakir Mcgowan is a 64-year-old man with a history of melanoma, hypertension, hyperlipidemia and a spinal fusion. He has loud snoring, witnessed apneas an episode of choking and gasping at night. He has difficulty breathing when he is on his back. He does not awaken with a morning headache. He does awaken with a dry mouth. He does not have nocturnal heartburn. He has nocturia twice at night. He had a prior sleep study in 2013, was diagnosed with moderate obstructive sleep apnea. He does have a medical comorbidity hypertension. He is sleepy and fatigued during the daytime, he is not refreshed on waking although he does not have the urge falls asleep during the day and he does not have drowsy driving. He does have an urge to move his legs at night, this is worse with resting and it does get better with activities. It is worse in the evening or night. This does cause him concern. He does kick his legs excessively at night, he clenches and grinds his teeth at night and he does have a restless feeling in his legs. He has difficulty falling asleep and staying asleep. When he awakens at night he has a difficult time returning to sleep. He is not anxious about his sleep. His normal bedtime is 9:00 p.m. falling asleep within 45 minute spending 7 hours in bed, 6 hours sleeping. On his weekends or days off, his usual bedtime is 10:00 p.m. falling asleep within 45 minutes spending 6 hours in bed and all 6 hours sleeping. He never feels restored on waking in the morning. [facility] Past Medical History Medical History HLD (hyperlipidemia) Lumbar disc disease GERD (gastroesophageal reflux disease) Hypertension History of actinic keratoses Hx of melanoma of skin 1996, 2000, 2002 Surgical History Surgical History Hx of spinal fusion December 2021 L3-L4 Status post surgical removal of malignant neoplasm of skin Family History Family History Father Heart disease Mother , age 87, multiple cancers no treatment Breast cancer Multiple myeloma Lung cancer Grandparent Malignant neoplasm of prostate Carcinoma of colon Other Carcinoma of colon Social History Social History Smoking packs per day: 1 Smoking cigarettes per day: 20.0 Years smoked: 40 Smoking pack-years: 40.00 Smoking status: Current every day smoker (0.75 ppd for 45 years) Tobacco type: cigarettes Alcohol intake: current Drinks per week: 42 Alcohol use details: BEER Substance use: never Substance use type: does not use Lack of Transportation: No Lack of Food: Never True Current Housing: I Have Housing Concerned About Future Housing: No Difficulty Paying Gas/Electric Bills: No Difficulty Paying for Meds: No Currently Unemployed: No Education: High School Diploma/GED Difficulty w/ Childcare or Family Care: No Living arrangements: with family Spiritual care concerns: No Medications Home Medications ?Medication ?Instructions ?Recorded ?Confirmed ?Type ascorbate calcium (vitamin C) 500 500 mg PO DAILY 12/26/19 04/08/24 History mg tablet cholecalciferol (vitamin D3) 50 50 mcg PO DAILY 12/26/19 04/08/24 History mcg (2,000 unit) tablet lisinopril 20 mg tablet 20 mg PO DAILY #90 tabs 02/27/24 04/08/24 Rx rosuvastatin 10 mg tablet 10 mg PO DAILY #90 tabs 06/05/24 Rx carvedilol 3.125 mg tablet 3.125 mg PO Q12H #180 tabs 07/31/24 Rx omeprazole 20 mg capsule,delayed 20 mg PO DAILY #90 caps 08/26/24 Rx release Sleep Procedure A full night CPAp Titration using the Evento multi-channel system recorded the standard physiologic parameters including EEG, EOG, submentalis EMG, anterior tibialis EMG, EKG, body position, nasal and oral airflow using nasal pressure sensor and thermistor.? Respiratory parameters of chest and abdominal movements were recorded with Respiratory Inductance Plethysmography belts. Oxygen saturation was recorded by pulse oximetry. Video monitoring was also performed. Sleep stages, periodic limb movements, and EEG arousals were scored in 30 second epochs according to the criteria of the AASM Scoring Manual. The Apnea-Hypopnea Index was calculated using [facility] guidelines for definition of hypopnea with 4% O2 desaturations while scoring respiratory events. Sleep Architecture The total recording time was 572.9 minutes.? The total sleep time was 352.0 minutes. Sleep latency was 61.0 minutes. REM latency was 105.5 minutes. Sleep efficiency was 61.4%. The patient had 29 awakenings for an awakening index of 4.9. Wake after Sleep Onset time was 159.5 minutes. The patient spent 26.0 mi nutes, 7.4% of total sleep time in Stage N1. The patient spent 210.5 minutes, 59.8% in Stage N2. The patient spent 19.0 minutes, 5.4% in Stage N3. The patient spent 96.5 minutes, 27.4% in Stage REM. Respiratory Analysis The patient had 2 hypopneas, 6 obstructive apneasand 2 central apneas for an overall Apnea Hypopnea Index of 1.7 events per hour. The REM Apnea Hypopnea Index was 1.9. The NREM Apnea Hypopnea Index was 1.6. The patient had a Central Apnea Hypopnea Index of 0.3. There was no evidence of Vic-Gilmore Respirations. The patient was started on CPAP 5 cm H2O and titrated to CPAP 11 cm H2O. The patient was able to fall asleep starting on CPAP 5 cm H2O. The patient was able to achieve REM sleep starting on CPAP 7 cm H2O. The patient was able to achieve a residual AHI less than 5 with both NREM and REM sleep on 7 cm H2O, 9 cm H2O and 11 cm H2O. The patient did not sleep in the supine position on any of these pressure settings. On CPAP 9 cm H2O, the patient spent 91.5 minutes in NREM and 46.5 minutes in REM with 3 obstructive apneas, 2 central apneas and 3 hypopneas, resulting in an AHI of 3.5. On CPAP 11 cm H2O, the patient spent 0.5 minutes in NREM and 17.5 minutes in REM with no respiratory events, resulting in an AHI of 0. The patient had a sleep efficiency of 91.1% on 9 cm H2O and 83.7% on 11 cm H2O. Arousals There were 123 total arousals for an arousal index of 21.0. There were 65 spontaneous arousals for an index of 11.1. ?There were 4 arousals due to respiratory events for an index of 0.7. There were 48 arousals due to periodic limb movements for an index of 8.2.? There were 7 arousals due to isolated limb movements for an index of 1.2. Periodic Limb Movements The patient had 34 isolated limb movements with an index of 5.8. The patient had 386 periodic limb movements with index of 65.8, which is elevated (normal< 15). Patient had a total of 420 limb movements with a total limb movement index of 71.6. Oximetry Data The patient had an average oxygen saturation of 92.6% in sleep with a minimum oxygen saturation of 89.0% and a maximum oxygen saturation of 97.0%. The patient had 5 oxygen desaturations that were 4% or greater resulting in an Oxygen Desaturation Index of 0.9.? The patient spent 0.5 minutes, 0.1% of total sleep time with an oxygen saturation below 88%. Snoring Profile Mild snoring was present in the beginning of the study. The snoring did not fully resolve on the final pressure setting. Cardiac Profile The EKG showed normal sinus rhythm. No arrhythmias or premature beats were seen. The patient had an average pulse rate of 64.3 bpm with a minimum pulse rate of 51.0 bpm and a maximum pulse rate of 82.0 bpm. ? EEG Profile No signs of seizure activity seen. Assessment and Plan Assessment and Plan (1) Obstructive sleep apnea: Code(s): G47.33 - Obstructive sleep apnea (adult) (pediatric) Status: Acute Assessment and Plan: The patient was started on CPAP 5 cm H2O and titrated to CPAP 11 cm H2O. The patient's sleep apnea resolved on multiple pressure settings with a high sleep efficiency. I recommend that the patient be prescribed CPAP 10 cm H2O, size medium F&P Solo nasal mask, CPAP filters/tubing and heated humidity. This should be used with all episodes of sleep.? Compliance should be reviewed within 31-90 days of starting therapy for usage greater than 4 hours per night greater than 70% of the nights. The patient should be asked about symptoms such as?excessive daytime sleepiness, quality of sleep, decreased nocturia, increased?mental functioning such as memory, mood, and concentration. Data The data obtained during this sleep study is adequate for interpretation. Certification This sleep study has been reviewed by a board certified sleep medicine physician.
== END 2024-07-31 07:10 | disposition home or self-care (01) ==
PROVIDERS: PCP Nurse Practitioner Adult Health; Visit Provider Nurse Practitioner Adult Health
DX: G47.33 Obstructive sleep apnea (adult) (pediatric) (principal); I10 Essential (primary) hypertension
CPT/HCPCS: 95811

== ENCOUNTER 2024-10-07 08:44 | Outpatient (CLI) | payer OTHER, SELFPAY ==
--- OUTSIDE RECORDS SUMMARY | 2024-10-07 08:52 | XMS_ITS | Encounter Summary ---
Author Organization [facility] Address 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
--- OUTSIDE RECORDS SUMMARY | 2024-10-07 08:52 | XMS_ITS | Encounter Summary ---
Author Organization [facility] Address 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
--- OUTSIDE RECORDS SUMMARY | 2024-10-07 08:52 | XMS_ITS | Encounter Summary ---
Author Organization [facility] Address 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
--- OUTSIDE RECORDS SUMMARY | 2024-10-07 08:52 | XMS_ITS | Encounter Summary ---
Author Organization [facility] Address 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
--- OUTSIDE RECORDS SUMMARY | 2024-10-07 08:52 | XMS_ITS | Encounter Summary ---
Author Organization [facility] Address 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
--- OUTSIDE RECORDS SUMMARY | 2024-10-07 08:52 | XMS_ITS | Clinical Summary ---
Author Organization [facility]ron Looney Address [address] [place] [address] Care Team Providers Care Doctorate Of Chiropractic Name Role Phone Unavailable Primary Care Provider [...] on file Legal Sex Male 5:24 AM LOGISTICS ADMINISTRATOR Gender Identity Not on file Sexual Orientation Not on file Last Filed Vital Signs Vital Sign Reading Time Taken Comments Blood Pressure 166/83 06/27/2019 3:05 PM LOGISTICS ADMINISTRATOR Pulse 64 06/27/2019 3:05 PM LOGISTICS ADMINISTRATOR Temperature 36.7 C (98.1 F) 06/27/2019 3:05 PM LOGISTICS ADMINISTRATOR Respiratory Rate - - Oxygen Saturation 95% 06/27/2019 3:05 PM LOGISTICS ADMINISTRATOR Inhaled Oxygen Concentration - - Weight 111.4 kg (245 lb 11.2 oz) 06/27/2019 3:05 PM LOGISTICS ADMINISTRATOR Height 175.3 cm (5' 9 ) 06/27/2019 3:05 PM LOGISTICS ADMINISTRATOR Body Mass Index 36.28 06/27/2019 3:05 PM LOGISTICS ADMINISTRATOR Plan of Treatment Health Maintenance Due Date [...]
[2024-10-07 19:49] LABS: Basophils Absolute Auto 0.1 K/mm3 (0.0-0.1); Basophils Percent Auto 1.1 % (0.2-1.2); Eosinophils Absolute Auto 0.5 K/mm3 (0-0.3); Eosinophils Percent Auto 4.4 % (0-4.4); Hemoglobin 15.5 g/dL (14.0-18.0); Immature Granulocyte Absolute 0.03 K/mm3 (0.00-0.031); Immature Granulocyte Percent A 0.3 % (0-0.5); Lymphocytes Absolute Auto 2.74 K/mm3 (0.9-3.2); Lymphocytes Percent Auto 24.9 % (18.3-44.2); Mean Corpuscular Hemoglobin 32.7 pg (26-34); Mean Corpuscular Volume 105.5 fl (80-100); Mean Platelet Volume 10.7 fl (7.4-10.4); Neutrophils Absolute Auto 6.6 K/mm3 (1.3-6.7); Neutrophils Percent Auto 60.3 % (45.5-73.1); Platelet Count Result 225 k/mm3 (150-375); Red Blood Count 4.74 M/mm3 (4.6-6.20); Red Cell Distribution Width 12.8 % (11.5-14.5)
[2024-10-07 20:05] LABS: Alanine Aminotransferase 50 U/L (6-50); Albumin Level 4.5 g/dL (3.5-5.1); Alkaline Phosphatase 68 U/L (38-126); Anion Gap 8 mmol/L (4-12); Aspartate Amino Transferase 78 U/L (17-59); Bilirubin,Total 0.8 mg/dL (0.2-1.3); Blood Urea Nitrogen 12 mg/dL (9-20); Calcium 9.5 mg/dL (8.4-10.2); Carbon Dioxide 24 mmol/L (22-30); Chloride 107 mmol/L (98-107); Cholesterol 179 mg/dL (0-200); Estimated Glomerular Filt Rate > 60; Glucose 93 mg/dL (65-110); HDL Direct 63 mg/dL; Potassium 4.6 mmol/L (3.4-5.0); Sodium 139 mmol/L (137-145); Triglycerides 156 mg/dL (<150)
[2024-10-07 20:16] LABS: LDL Cholesterol Direct 74 mg/dL
[2024-10-07 20:28] LABS: Vitamin D 25 Hydroxy 67.2 ng/mL
[2024-10-07 20:34] LABS: Platelet Estimate Adequate (Adequate); Schistocytes None Seen
[2024-10-07 20:35] LABS: Band Neutrophils Percent 0 % (0-6); Hypochromasia 1+; Macrocytosis 1+ (NORMAL)
== END 2024-10-07 08:45 | disposition home or self-care (01) ==
PROVIDERS: PCP Nurse Practitioner Adult Health; Visit Provider Nurse Practitioner Adult Health
DX: K21.9 Gastro-esophageal reflux disease without esophagitis (principal); I10 Essential (primary) hypertension; E55.9 Vitamin D deficiency, unspecified
CPT/HCPCS: 36415; 80053; 80061; 82306; 82607; 85025

== ENCOUNTER 2025-04-10 09:13 | Outpatient (CLI) | payer OTHER, SELFPAY ==
--- OUTSIDE RECORDS SUMMARY | 2025-04-10 10:20 | XMS_ITS | Clinical Summary ---
Author Organization [facility] Address [address] [place] [address] Care Team Providers Care Pantograph Engraver Name Role Phone Unavailable Primary Care Provider [...] Td Vaccines ( 1 - Tdap) 1977 Pneumococcal Vaccine: 50+ Ye ars (1 of 1 - PCV) 2008 Zoster Vaccines (1 of 2) 2008 COVID-19 Vaccine ( - 2024-2 6 season) 2025 Influenza Adult (#1) 2025 RSV Immunization or 60+ Years (1 - 1-dose 75+ series) 2033 Hepatitis A Vaccines Aged Out No long er eligible based on patient's age to complete this topic Meningococcal B Vaccine Aged Out No l onger eligible based on patient's age to complete this topic Meningococcal Vaccine Aged Out No robb bella eligible based on patient's age to complete this topic RSV Immunizations Under 20 Months Aged Out No longer eligible based on patient's age to complete this topic
[2025-04-10 19:36] LABS: Alanine Aminotransferase 39 U/L (6-50); Albumin Level 4.3 g/dL (3.5-5.1); Alkaline Phosphatase 60 U/L (38-126); Anion Gap 6 mmol/L (4-12); Aspartate Amino Transferase 60 U/L (17-59); Bilirubin,Total 0.9 mg/dL (0.2-1.3); Blood Urea Nitrogen 10 mg/dL (9-20); Calcium 9.3 mg/dL (8.4-10.2); Carbon Dioxide 23 mmol/L (22-30); Chloride 108 mmol/L (98-107); Cholesterol 160 mg/dL (0-200); Estimated Glomerular Filt Rate > 60; Glucose 99 mg/dL (65-110); HDL Direct 53 mg/dL; Potassium 4.1 mmol/L (3.4-5.0); Sodium 137 mmol/L (137-145); Total Protein 7.3 g/dL (6.3-8.2); Triglycerides 170 mg/dL (<150)
[2025-04-10 20:12] LABS: Prostate Specific Antigen 1.9 ng/mL (< OR = 4.0)
[2025-04-11 10:08] LABS: Vitamin B12 616 pg/mL (232-1245)
== END 2025-04-10 09:14 | disposition home or self-care (01) ==
PROVIDERS: PCP Nurse Practitioner Adult Health; Visit Provider Nurse Practitioner Adult Health
DX: E53.8 Deficiency of other specified B group vitamins (principal); E78.5 Hyperlipidemia, unspecified; Z12.5 Encounter for screening for malignant neoplasm of prostate; E55.9 Vitamin D deficiency, unspecified
CPT/HCPCS: 36415; 80053; 80061; 82306; 82607; 84153; G0103

== ENCOUNTER 2025-04-22 12:59 | Outpatient (CLI) | payer OTHER, SELFPAY ==
--- NOTE | ~2025-04-22 | XR_ITS ---
EXAMINATION: XR hip BI 2V w AP pelvis, 04/22/2025 13:02 LIQUOR DEPARTMENT MANAGER HISTORY: M25.559 - Pain in unspecified hip COMPARISON: No comparisons available. Findings: No acute fracture or malalignment. No significant degenerative changes. Soft tissues unremarkable. Impression: No acute fracture or malalignment. Reviewed, dictated and finalized at location P. OR DEPARTMENT MANAGER Impression: No acute fracture or malalignment.
--- OUTSIDE RECORDS SUMMARY | 2025-04-22 13:53 | XMS_ITS | Encounter Summary ---
Author Organization [facility] Address 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
--- OUTSIDE RECORDS SUMMARY | 2025-04-22 13:53 | XMS_ITS | Encounter Summary ---
Author Organization [facility] Address 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
--- OUTSIDE RECORDS SUMMARY | 2025-04-22 13:53 | XMS_ITS | Encounter Summary ---
Author Organization [facility] Address 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
--- OUTSIDE RECORDS SUMMARY | 2025-04-22 13:53 | XMS_ITS | Clinical Summary ---
Author Organization [facility] Aron Looney Address [address] [place] [address] Care Team Providers Care Pharmacy Technician Inpatient Name Role Phone Unavailable Primary Care Provider [...] on file Legal Sex Male 5:24 AM SCIENTIFIC AFFAIRS MANAGER Gender Identity Not on file Sexual Orientation Not on file Last Filed Vital Signs Vital Sign Reading Time Taken Comments Blood Pressure 166/83 06/27/2019 3:05 PM SCIENTIFIC AFFAIRS MANAGER Pulse 64 06/27/2019 3:05 PM SCIENTIFIC AFFAIRS MANAGER Temperature 36.7 C (98.1 F) 06/27/2019 3:05 PM SCIENTIFIC AFFAIRS MANAGER Respiratory Rate - - Oxygen Saturation 95% 06/27/2019 3:05 PM SCIENTIFIC AFFAIRS MANAGER Inhaled Oxygen Concentration - - Weight 111.4 kg (245 lb 11.2 oz) 06/27/2019 3:05 PM SCIENTIFIC AFFAIRS MANAGER Height 175.3 cm (5' 9) 06/27/2019 3:05 PM SCIENTIFIC AFFAIRS MANAGER Body Mass Index 36.28 06/27/2019 3:05 PM SCIENTIFIC AFFAIRS MANAGER Plan of Treatment Health Maintenance Due Date Last Done Comments DTAP/TDAP/TD VACCINES (1 - Tdap) 1977 PNEUMOCOCCAL VACCINE 50+ YEARS (1 of 2 - PCV) 06/10/18 78 COLORECTAL SCREENING 2003 Colorectal Cancer Screening 2003 FIT-DNA Q 3 years 2003 FIT/FOBT Q 1 year 2003 Flex Sig/CT Colonography Q 5 years 2003 ZOSTER VACCINE (1 of 2) 2008 INFLUENZA VACCINE (#1) 2024 RSV VACCINE (60+ or ) (1 - 1-dose 75+ series) 2033 Insurance [employer] ELECT CHOICE
--- OUTSIDE RECORDS SUMMARY | 2025-04-22 13:53 | XMS_ITS | Clinical Summary ---
Author Organization [facility] Address [address] [place] [address] Care Team Providers Care Wagon Driver Salesperson Name Role Phone Unavailable Primary Care Provider [...]
--- OUTSIDE RECORDS SUMMARY | 2025-04-22 13:53 | XMS_ITS | Encounter Summary ---
Author Organization [facility] Address 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
--- OUTSIDE RECORDS SUMMARY | 2025-04-22 13:53 | XMS_ITS | Encounter Summary ---
Author Organization [facility] Address 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
--- OUTSIDE RECORDS SUMMARY | 2025-04-22 13:53 | XMS_ITS | Clinical Summary ---
Author Organization [facility] Address [address] [place] [address] Care Team Providers Care Field Operator Name Role Phone Harper Simmons MD Primary Care Provider [phone] Allergies No known active allergies Medications gabapentin (NEURONTIN) 300 mg capsule Take 300 mg by mouth nightly 08/30/2020 Active lisinopriL (PRINIVIL,ZESTR IL) 20 mg tablet Take 20 mg by mouth daily 07/01/2020 Active omeprazole (PriLOSEC) 20 mg capsule 09/28/2020 Active carvediloL (COREG) 3.125 mg tablet 09/28/2020 Active ascorbic acid (VITAMIN C ORAL) Take by mouth Active cholecalciferol , vitamin D3, (VITAMIN D3 ORAL) Take by mouth Active Active Problems No known active problems Surgical History Surgery Date Site/Laterality Comments BONY PELVIS SURGERY 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 Ellie O Care Teams Field Operator Relationship Specialty Start Date End Date Harper Simmons MD PCP - General Family Medicine 09/02/20
== END 2025-04-22 13:00 | disposition home or self-care (01) ==
LOC: ANHBWCIMG 13:01
PROVIDERS: PCP Nurse Practitioner Adult Health; Visit Provider Nurse Practitioner Adult Health
DX: M25.551 Pain in right hip (principal); M25.552 Pain in left hip
CPT/HCPCS: 73521

== ENCOUNTER 2025-04-25 09:09 | Outpatient (CLI) | payer OTHER, SELFPAY ==
--- NOTE | ~2025-04-25 | CT_ITS ---
EXAMINATION:CT lung screening DATE: 04/25/2025 09:50 INDICATION: Personal history of nicotine dependence. TECHNIQUE: Computed tomography (CT) of the chest was performed without intravenous contrast. Automated exposure control and iterative reconstruction technique were employed. The dose-length product (DLP) was 282.40 mGy-cm. COMPARISON: Chest CT 04/24/2024 FINDINGS: There is mild scarring at the lung apices. There is mild emphysema. Calcified left lung nodules and calcified mediastinal lymph nodes are consistent with old granulomatous disease. There is a 2 mm nodule in left upper lobe. No pleural effusion. The heart size is normal. There are coronary artery calcifications. No pericardial effusion. There is diffuse hepatic steatosis. Calcifications in the spleen are consistent with old granulomatous disease. There is a 4 mm stone in left kidney. There is mild thoracic spondylosis and severe lumbar spondylosis. IMPRESSION: 1. Lung-RADS category 2: Benign appearance or behavior. Continue annual screening with noncontrast low-dose chest CT in 12 months. Reviewed, dictated and finalized at location E. CTION MOLD TECHNICIAN IMPRESSION: 1. Lung-RADS category 2: Benign appearance or behavior. Continue annual screeni ng with noncontrast low-dose chest CT in 12 months.
== END 2025-04-25 09:10 | disposition home or self-care (01) ==
PROVIDERS: PCP Nurse Practitioner Adult Health; Visit Provider Nurse Practitioner Adult Health
DX: Z12.2 Encounter for screening for malignant neoplasm of respiratory organs (principal); Z87.891 Personal history of nicotine dependence
CPT/HCPCS: 71271

== ENCOUNTER 2025-04-28 00:56 | Day surgery (SDC) | payer OTHER, SELFPAY ==
[2025-04-07 12:46] VITALS: BMI 35.5
--- OUTSIDE RECORDS SUMMARY | 2025-04-28 00:58 | XMS_ITS | Clinical Summary ---
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
--- OUTSIDE RECORDS SUMMARY | 2025-04-28 00:58 | XMS_ITS | Clinical Summary ---
Author Organization [facility] Address [address] [place] [address] Care Team Providers Care Buyer Name Role Phone Unavailable Primary Care Provider [...]
--- OUTSIDE RECORDS SUMMARY | 2025-04-28 00:58 | XMS_ITS | Encounter Summary ---
Author Organization [facility] Address 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
--- OUTSIDE RECORDS SUMMARY | 2025-04-28 00:58 | XMS_ITS | Encounter Summary ---
Author Organization [facility] Address 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
--- OUTSIDE RECORDS SUMMARY | 2025-04-28 00:58 | XMS_ITS | Encounter Summary ---
Author Organization [facility] Address 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
--- OUTSIDE RECORDS SUMMARY | 2025-04-28 00:58 | XMS_ITS | Encounter Summary ---
Author Organization [facility] Address 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
--- OUTSIDE RECORDS SUMMARY | 2025-04-28 00:58 | XMS_ITS | Encounter Summary ---
Author Organization [facility] Address 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
--- OUTSIDE RECORDS SUMMARY | 2025-04-28 00:58 | XMS_ITS | Clinical Summary ---
Author Organization [facility] [place] [facility] Aron Looney Address [address] [place] [address] Care Team Providers Care Building Illuminating Engineer Name Role Phone Unavailable Primary Care Provider [...] on file Legal Sex Male 5:24 AM PRODUCTION SUPPORT MANAGER Gender Identity Not on file Sexual Orientation Not on file Last Filed Vital Signs Vital Sign Reading Time Taken Comments Blood Pressure 166/83 06/27/2019 3:05 PM PRODUCTION SUPPORT MANAGER Pulse 64 06/27/2019 3:05 PM PRODUCTION SUPPORT MANAGER Temperature 36.7 C (98.1 F) 06/27/2019 3:05 PM PRODUCTION SUPPORT MANAGER Respiratory Rate - - Oxygen Saturation 95% 06/27/2019 3:05 PM PRODUCTION SUPPORT MANAGER Inhaled Oxygen Concentration - - Weight 111.4 kg (245 lb 11.2 oz) 06/27/2019 3:05 PM PRODUCTION SUPPORT MANAGER Height 175.3 cm (5' 9) 06/27/2019 3:05 PM PRODUCTION SUPPORT MANAGER Body Mass Index 36.28 06/27/2019 3:05 PM PRODUCTION SUPPORT MANAGER Plan of Treatment Health Maintenance Due [...]
[2025-04-28 07:36] VITALS: BP 181/80; PULSE 71; RESP 16; TEMP 36.6; O2SAT 97; BMI 34.2
[2025-04-28] MEDS: LACTATED RINGERS 1,000 ML 150 ML IV CONT (07:42)
--- NOTE | 2025-04-28 08:34 | P.PNAN_ITS ---
Anes - Initial Pre Proc Eval Procedure: Operation Date: 04/28/25 09:00 Proposed Procedures p Screening Colonoscopy - Sean Stoddard MD Date/Time: 04/28/25 08:34 Surgeon: Sean Stdodard MD Pre Op Diagnosis: Encounter for screening for malignant neoplasm of Patient Data Age: 64 Gender: M Height: 1.75 m Weight: 105.3 kg Last Vital Signs Temp 36.6 C 04/28/25 07:36 Pulse 71 04/28/25 07:36 Resp 16 04/28/25 07:36 BP 181/80 H 04/28/25 07:36 Pulse Ox 97 04/28/25 07:36 O2 Del Method Room Air 04/28/25 07:36 Allergies Allergy/AdvReac Type Severity Reaction Status Date / Time No Known Allergies Allergy Verified 04/28/25 07:35 Home Medications ?Medication ?Instructions ?Recorded ?Confirmed ?Type ascorbate calcium (vitamin C) 500 500 mg PO DAILY 11/0804/28/25 History mg tablet cholecalciferol (vitamin D3) 50 50 mcg PO DAILY 04/28/25 History mcg (2,000 unit) tablet carvedilol 3.125 mg tablet 3.125 mg PO Q12H #180 tabs 07/31/24 04/28/25 Rx omeprazole 20 mg capsule,delayed 20 mg PO DAILY #90 ca ps 08/26/24 04/28/25 Rx release rosuvastatin 10 mg tablet 10 mg PO DAILY #90 tabs 02/1304/28/25 Rx lisinopril 20 mg tablet 20 mg PO DAILY #90 tabs 01/2004/28/25 Rx cyanocobalamin (vitamin B-12) See Rx Instructions .Rou te 04/02/25 04/28/25 Rx 1,000 mcg sublingual tablet .COMPLEX #90 tabs celecoxib 100 mg capsule (Celebrex) 100 mg PO BID #60 caps 04/10/25 04/10/25 Rx Held on 04/21/25. Instructions: .Provider Order methylprednisolone 4 mg tablets in See Rx Instructions PO PER PKG DIR 04/21/25 Rx a dose pack (Medrol (Price)) #21 ea Patient hx anesthesia problems: none Family hx anesthesia problems: none Results Review: All pre-operative results and documents have been reviewed as part of the pre- operative evaluation. [facility] Past Medical History Medical History HLD (hyperlipidemia) Lumbar disc disease GERD (gastroesophageal reflux disease) Hypertension History of actinic keratoses Hx of melanoma of skin 1996, 2000, 2002 Surgical History Surgical History Hx of spinal fusion December 2021 L3-L4 Status post surgical removal of malignant neoplasm of skin Family History Family History Father Heart disease Mother , age 87, multiple cancers no treatment Breast cancer Multiple myeloma Lung cancer Grandparent Malignant neoplasm of prostate Carcinoma of colon Other Carcinoma of colon Social History Social History Smoking packs per day: 0.5 Smoking cigarettes per day: 10.0 Years smoked: 40 Smoking pack-years: 20.00 Smoking status: Current every day smoker Tobacco type: cigarettes Alcohol intake: current Drinks per week: 28 Alcohol use details: BEER Substance use: never Substance use type: does not use Lack of Transportation: No Lack of Food: Never True Current Housing: I Have Housing Concerned About Future Housing: No Difficulty Paying Gas/Electric Bills: No Difficulty Paying for Meds: No Currently Unemployed: No Education: High School Diploma/GED Difficulty w/ Childcare or Family Care: No Living arrangements: with family Spiritual care concerns: No Anes - Eval Final PreProcedure Day of Procedure 04/28/25 08:34 Patient weight: obese Heart: regular rate and rhythm Lungs: clear to auscultation Airway: Mallampati scale class III Neurological: alert and oriented Last oral intake: >/= 8 hours ASA classification: III Emergent: no Anesthetic plan: proceed Anesthesia type and monitoring: general GIVS and standard monitoring Results Review: All pre-operative results and documents have been reviewed as part of the pre- operative evaluation. Informed Consent: The patient's anesthetic plan and its attendant risks and benefits were discussed with the patient/family/POA. Questions were solicited and answers provided to the satisfaction of the patient/family/POA.
--- NOTE | 2025-04-28 08:42 | PM.HPGS ---
History of Present Illness History of Present Illness Consent: Risks, benefits, and alternatives have been discussed and questions answered. Patient agrees to proceed with procedure. Chief complaint: Encounter for screening for malignant neoplasm of Narrative: Shakir Mcgowan is a 64 year old male with last colonoscopy 5 years ago Review of Systems Review of Systems: All systems reviewed & are unremarkable except as noted in HPI and below PMFSH Past Medical History Medical History HLD (hyperlipidemia) Lumbar disc disease GERD (gastroesophageal reflux disease) Hypertension History of actinic keratoses Hx of melanoma of skin 1996, 2000, 2002 Surgical History Surgical History Hx of spinal fusion December 2021 L3-L4 Status post surgical removal of malignant neoplasm of skin Family History Family History Father Heart disease Mother , age 87, multiple cancers no treatment Breast cancer Multiple myeloma Lung cancer Grandparent Malignant neoplasm of prostate Carcinoma of colon Other Carcinoma of colon Social History Social History Smoking packs per day: 0.5 Smoking cigarettes per day: 10.0 Years smoked: 40 Smoking pack-years: 20.00 Smoking status: Current every day smoker Tobacco type: cigarettes Alcohol intake: current Drinks per week: 28 Alcohol use details: BEER Substance use: never Substance use type: does not use Lack of Transportation: No Lack of Food: Never True Current Housing: I Have Housing Concerned About Future Housing: No Difficulty Paying Gas/Electric Bills: No Difficulty Paying for Meds: No Currently Unemployed: No Education: High School Diploma/GED Difficulty w/ Childcare or Family Care: No Living arrangements: with family Spiritual care concerns: No Meds Home Medications and Allergies Home Medications ?Medication ?Instructions ?Recorded ?Confirmed ?Type ascorbate calcium (vitamin C) 500 500 mg PO DAILY 12/26/19 04/28/25 History mg tablet cholecalciferol (vitamin D3) 50 50 mcg PO DAILY 12/26/19 04/28/25 History mcg (2,000 unit) tablet carvedilol 3.125 mg tablet 3.125 mg PO Q12H #180 tabs 07/31/24 04/28/25 Rx omeprazole 20 mg capsule,delayed 20 mg PO DAILY #90 caps 08/26/24 04/28/25 Rx release rosuvastatin 10 mg tablet 10 mg PO DAILY #90 tabs 11/27/24 04/28/25 Rx lisinopril 20 mg tablet 20 mg PO DAILY #90 tabs 02/01/25 04/28/25 Rx cyanocobalamin (vitamin B-12) See Rx Instructions .Route 04/02/25 04/28/25 Rx 1,000 mcg sublingual tablet .COMPLEX #90 tabs celecoxib 100 mg capsule (Celebrex) 100 mg PO BID #60 caps 04/10/25 04/10/25 Rx Held on 04/21/25. Instructions: .Provider Order methylprednisolone 4 mg tablets in See Rx Instructions PO PER PKG DIR 04/21/25 Rx a dose pack (Medrol (Price)) #21 ea Allergies Allergy/AdvReac Type Severity Reaction Status Date / Time No Known Allergies Allergy Verified 04/28/25 07:35 Vital Signs Vital Signs - 24 hr 04/28/25 07:36 Temperature 97.8 F Pulse Rate 71 Respiratory Rate 16 Blood Pressure 181/80 H Pulse Oximetry 97 Oxygen Delivery Room Air Exam Const: General: comfortable and no acute distress HENMT: Face/Nose/Sinus: Normal nares present Eyes: General: appearance normal, both eyes and all related structures Resp: Auscultation: clear to auscultation bilaterally Cardio: Rate: regular rate Rhythm: regular rhythm GI: Inspection: non-distended GI Palp: Yes Soft to palpation Skin: General skin exam: normal color Extrem: General: normal to inspection Psych: Mental Status: mental status grossly normal Assessment and Plan Assessment and plan (1) Colon cancer screening: Code(s): Z12.11 - Encounter for screening for malignant neoplasm of colon Status: Acute Assessment and Plan: colonoscopy
[2025-04-28 08:58] VITALS: BP 145/81; PULSE 67; RESP 26; O2SAT 95
--- NOTE | 2025-04-28 08:59 | S_PTH ---
PATIENT: Shakir Mcgowan LOC: [facility] Add[facility]#:[id number] AGE/SX: 64/M ROOM: RE04/28/[address]: Sean Stoddard MD : 1960 BED: DIS: 04/28/2025 SPEC #: [id number] RECD: 04/28/25 10:31 STATUS: LIO REAsad #: [id number] MANA: 04/28/25 08:[address]: Sean Stoddard DEPT: [facility] Surgical RECD BY: Jinny Hoang ENTERED: 04/28/25 10:31 SP TYPE: Surgical OTHR DR: Lakisha Perez APRN Tissues: A - Colon Polypectomy B - Colon Polypectomy Procedures: Hematoxylin and Eosin Stain Gross and Microscopic Level 4
[2025-04-28 09:08] VITALS: BP 134/83; PULSE 69; RESP 23; O2SAT 95
[2025-04-28 09:18] VITALS: BP 161/82; PULSE 66; RESP 19; O2SAT 99
== END 2025-04-28 09:22 | disposition home or self-care (01) ==
PROVIDERS: PCP Nurse Practitioner Adult Health; Visit Provider Internal Medicine Gastroenterology
PROC: 0DJD8ZZ Inspection of Lower Intestinal Tract, Via Natural or Artificial Opening Endoscopic (ICD-10-PCS; CPT 45378; principal; 2025-04-28 09:00)
DX: Z12.11 Encounter for screening for malignant neoplasm of colon (principal); D12.2 Benign neoplasm of ascending colon; D12.8 Benign neoplasm of rectum; K64.8 Other hemorrhoids; E78.5 Hyperlipidemia, unspecified; I10 Essential (primary) hypertension; K21.9 Gastro-esophageal reflux disease without esophagitis; L57.0 Actinic keratosis; M51.369 Other intervertebral disc degeneration, lumbar region without mention of lumbar back pain or lower extremity pain; F17.210 Nicotine dependence, cigarettes, uncomplicated; E66.9 Obesity, unspecified; Z68.34 Body mass index [BMI] 34.0-34.9, adult; Z79.1 Long term (current) use of non-steroidal anti-inflammatories (NSAID); Z98.890 Other specified postprocedural states; Z98.1 Arthrodesis status; Z85.820 Personal history of malignant melanoma of skin; Z80.3 Family history of malignant neoplasm of breast; Z80.1 Family history of malignant neoplasm of trachea, bronchus and lung; Z80.42 Family history of malignant neoplasm of prostate; Z80.0 Family history of malignant neoplasm of digestive organs; Z80.7 Family history of other malignant neoplasms of lymphoid, hematopoietic and related tissues; Z82.49 Family history of ischemic heart disease and other diseases of the circulatory system
CPT/HCPCS: 45385; 88305; J2704; J7120